=== PATIENT | male | born 1965 | race Caucasian/White ===

== ENCOUNTER → 2016-12-09 | Outpatient (CLI) | payer BC ==
[~2016-12-09] MED LIST: PRM5C60 TOP; SULF1TAB35 PO; TR1C15 TOP
--- NOTE | 2016-12-09 17:42 | Urgent Care T Sheet Gen (E) ---
Intake General Temperature (Fahrenheit): 97.9 Pulse: 121 Blood Pressure Systolic: 172 Blood Pressure Diastolic: 80 Respirations: 20 SPO2: 98 Chief Complaint: rash Source: Patient History of Present Illness Initial Comments Pt notes that about 3 weeks ago they were in [place] and he thinks he got some sort of ant or insect bite on his right lower leg. He notes that the bite/rash from that itched . He notes that they have been traveling and staying in hotels since then and the rash has spread to a little higher up on his leg. He has cleaned it with hydrogen peroxide and that has not helped. He noticed some "acne " like spots on his left upper arm about 1 week ago. He did some reading on the internet and now is concerned about some sore of mite that he could have picked up in the hotels they were staying in. Home Meds Active Scripts Sulfamethoxazole/Trimethoprim (Bactrim DS)1 Each Tablet1 Tab PO BID Infection # 20 TAB Ref 0 Prov:LAURA DUNHAM 12/09/16 Triamcinolone Acet (Kenalog 0.1% Cream)15 Gm Cr15 Gm TOP TID #30 TUBE Apply to affected area TID prn Prov:LAURA DUNHAM 12/09/16 Permethrin (Elimite 5% Cream)60 Gm Cr60 Gm TOP ONCE #60 TUBE Apply to body x 1. Wash off after 8 hours. Prov:LAURA DUNHAM 12/09/16 Respiratory Constitutional Symptoms: No syptoms reported EENTM: No symptoms reported Respiratory: No symptoms reported Cardiovascular: No symptoms reported Gastrointestinal/Abdominal: No symptoms reported Genitourinary: No symptoms reported Musculoskeletal: No symptoms reported Skin: See HPI All Other Systems Reviewed Remaining Systems: All other systems reviewed with negative findings Past [id number] Hx Patient's Social History Alcohol Use: Denies Use Smoking Status: Never smoker Physical Exam Physical Exam General Appearance: WD/WN No apparent distress Eyes, Ears, Nose, Throat Ex: PERRL/EOMI Normal ENT inspection Neck Exam: Non tender Full range of motion Normal inspection Normal thyroid Respiratory Exam: Lungs clear Normal breath sounds Cardiovascular Exam: Regular rate, rhythm No edema Skin Exam: Other (On exam of right lower kang (lateral aspect). He has dry skin with scaly erythematous area over this. Area is approx 12 cm in length. No ulcerations or LE edema. on exam of left upper arm appears to be more erythematous papules more consistent with follicluits. No rash noted elsewhere. ) Departure Urgent Care Impression Chief Complaint: rash Impression: Primary Impression: Dermatitis Departure Disposition: 01 HOME OR SELF-CARE Condition: Stable Referrals: DARIO THOMPSON (PCP) Additional Instructions: Discussed with the pt that I suspect that the rash on his right lower leg is more reaction to insect bite with secondary drying of the skin. Stop using hydrogen peroxide. RX given for TAC 0.1% cream. Use as directed. The rash on his left upper arm appears to be more of a folliculitis. Will treat that with Bactrim DS as prescribed below. Pt is very concerned that he has encounter scabies. I did give him a rx for Elimite. Discussed with Patient and his that pt's BP is elevated. Pt notes that he has h/o anxiety and that he was very nervous in the appt. I recheck BP manually and it was 152/80. I recommend he follow-up with his PCP to recheck BP in the next 2-3 days. Return to ER or UC if symptoms get worse or further concern. Discharge instructions verbally given to Patient. Patient verbalizes understanding of discharge instructions Scripts Sulfamethoxazole/Trimethoprim (Bactrim DS)1 Each Tablet1 Tab PO BID Infection # 20 TAB Ref 0 Prov:LAURA DUNHAM 12/09/16 Triamcinolone Acet (Kenalog 0.1% Cream)15 Gm Cr15 Gm TOP TID #30 TUBE Apply to affected area TID prn Prov:LAURA DUNHAM 12/09/16 Permethrin (Elimite 5% Cream)60 Gm Cr60 Gm TOP ONCE #60 TUBE Apply to body x 1. Wash off after 8 hours. Prov:LAURA DUNHAM 12/09/16 End of report . LAURA DUNHAM Dec 09, 2016 17:42
[2016-12-09 18:00] VITALS: BP 172/80
== END ==
LOC: MHUC 16:57
PROVIDERS: ATTEND Physician Assistant
DX: L30.8 Other specified dermatitis (principal)
CPT/HCPCS: 99213